=== PATIENT | female | born 1950 | race Caucasian/White ===

== ENCOUNTER 2019-12-10 09:18 | Emergency (ER) | payer MEDICARE, OTHER, SELFPAY ==
[2019-12-10 09:19] VITALS: PULSE 75
--- NOTE | 2019-12-10 09:22 | W.ED.UPPEXIN ---
HPI - Extremity Injury (Upper) General: Chief Complaint: Extremity Injury, Upper Stated Complaint: LEFT WRIST INJURY Time Seen by Provider: 12/10/19 09:22 Source: patient Mode of arrival: ambulatory Limitations: no limitations Review of Systems General: Reports: 10 or more systems reviewed and unremarkable except in HPI and below Musc: Reports: joint pain (left wrist) [facility] ED PFSH: Social History Smoking and tobacco status: never smoked Physical Exam Const: COMMON NORMALS: no acute distress and patient oriented x3 GENERAL APPEARANCE: cooperative HENMT: COMMON NORMALS: normocephalic and Normal external nose present HEAD & SCALP: normal to inspection and normocephalic NOSE: Normal external nose present Eye: GENERAL EYE: appearance normal, both eyes and all related structures Neck/C-Spine: COMMON NORMALS: full ROM Chest: COMMONS NORMALS: normal inspection of the chest Resp: COMMON NORMALS: normal respiratory effort EFFORT & INSPECTION: Yes able to speak in complete sentences Cardio: COMMON NORMALS: regular rate and regular rhythm RATE: regular rate RHYTHM: regular rhythm GI: COMMON NORMALS: non-tender : COMMON NORMALS: Yes no CVA tenderness BLADDER/KIDNEY EXAM: Yes no CVA tenderness Back/Pelvis: COMMON NORMALS: no CVA tenderness and thoracic and lumbar spine normal to inspection Extremity: NARRATIVE EXTREMITY EXAM: left wrist swelling dorsal radial side. tolerable movement, normal cap refill and tendon function. Neuro: COMMON NORMALS: patient oriented x3 and moves all extremities Psych: COMMON NORMALS: mental status grossly normal and cooperative Skin: COMMON NORMALS: no rashes or lesions noted GENERAL SKIN EXAM: no rashes or lesions noted Course Vital Signs: Vital signs: Vital Signs Temperature 98.1 F 12/10/19 09:24 Pulse Rate 83 12/10/19 09:24 Respiratory Rate 18 12/10/19 09:24 Blood Pressure 192/103 12/10/19 09:24 Pulse Oximetry 97 12/10/19 09:24 MDM - Extremity Injury (Upper) [facility] Narrative: Medical decision making narrative: Patient comes in today for injury to the left wrist. Patient has minimal pain. Patient appears well. Patient has dinner fork type deformity to the left wrist. Patient has good tendon function and no sensation loss in the distal fingers. Pulses intact. Vital signs are normal except for elevated blood pressure. Differential diagnosis includes fracture, dislocation, sprain, contusion. X-ray noted a Colles' type fracture to the distal radius of the left wrist. Reviewed exam with patient with recommendations for treatment and follow-up. Patient was placed in a sugar tong splint and sling. Patient will have contact by case management to assist with orthopedic follow-up. Patient reported understanding of care plan. Discharge Plan Discharge Patient Disposition: Home, Self-Care Clinical Impression: Distal radial fracture Qualifiers: Encounter type: initial encounter Fracture type: closed Fracture morphology: Colles' Laterality: left Qualified Code(s): S52.532A - Colles' fracture of left radius, initial encounter for closed fracture Condition: Stable Prescriptions: New hydrocodone-acetaminophen 5-325 mg tablet 1 tab PO Q6H PRN (Reason: pain (scale score 7-10)) Qty: 10 RF: 0 No Action Celexa 10 mg Tablet 10 mg PO DAILY PRN (Reason: ANXIETY) RF: 0 Aspir-81 81 mg Tablet,Delayed Release (Dr/Ec) 81 mg PO DAILY RF: 0 tramadol 50 mg tablet 50 mg PO BID PRN (Reason: Pain) RF: 0 bisoprolol fumarate 10 mg tablet 10 mg PO DAILY RF: 0 hydrochlorothiazide 12.5 mg tablet 12.5 mg PO DAILY RF: 0 Vitamin D3 1 tab PO DAILY RF: 0 Discharge Orders: Discharge Order (Routine); Ordered 12/10/19 Ordered By: Migel Buckley Referrals: Moustapha Willis MD [Primary Care Provider] - Discharge Diet: Usual diet Discharge Activity: Increase activity as tolerated Patient Instructions: Wrist Fracture in Adults (ED) Activity Restrictions/Additional Instructions: Keep splint clean and dry. Activity as tolerated. Use sling for comfort. May remove sling at night when laying down. Follow-up with orthopedic surgeon for further treatment and evaluation. Return to the ER for uncontrolled pain or new concerns. Case management will contact you with assistance for orthopedic follow-up. Coding Level of Care Code ED Steward/Stewardess Bath for Martin Ferrera Exam Comprehensive
[2019-12-10 09:24] VITALS: BP 192/103; PULSE 83; RESP 18; TEMP 36.7; O2SAT 97; BMI 25.0
--- NOTE | 2019-12-10 09:26 | XRR_ITS ---
PROCEDURE INFORMATION: Exam: XR Left Wrist Exam date and time: 12/10/2019 9:27 AM Age: 68 years old Clinical indication: Injury or trauma; Fall; Initial encounter; Blunt trauma (contusions or hematomas; Wrist; Left TECHNIQUE: Imaging protocol: XR Left wrist. Views: 3 or more views. COMPARISON: No relevant prior studies available. FINDINGS: Bones/joints: Acute impacted intra-articular fracture of the distal radius, with dorsal angulation of the major distal fracture fragment. Secondary positive ulnar variance. Degenerative change. Soft tissues: Soft tissue swelling. XR/XR wrist LT min 3V* 60370 IMPRESSION: Acute impacted intra-articular fracture of the distal radius, with dorsal angulation of the major distal fracture fragment.
[2019-12-10 10:45] VITALS: BP 123/75; PULSE 65; RESP 16; O2SAT 98
--- NOTE | 2019-12-11 11:47 | DCPLANNER ---
production control manager had message to schedule a follow up appointment for patient with ortho. production control manager called the ortho clinic, spoke with Linnette, gave clinic patients information. production control manager was told that patients information would be printed and reviewed. Clinic will call adult protective caseworker and patient with appointment information.
--- NOTE | 2019-12-15 15:29 | DCPLANNER ---
Patient had a follow up appointment scheduled for 12.11.19 at ortho. Patient did attend the appointment.
== END 2019-12-10 10:47 | disposition home or self-care (01) ==
PROVIDERS: Emergency Provider Nurse Practitioner Family; PCP Family Medicine
DX: S52.532A Colles' fracture of left radius, initial encounter for closed fracture (principal); X58.XXXA Exposure to other specified factors, initial encounter; Z79.82 Long term (current) use of aspirin
CPT/HCPCS: 12345; 29125; 73110; 99281; 99283; A4590

== ENCOUNTER 2019-12-13 10:35 | Day surgery (SDC) | payer MEDICARE, OTHER, SELFPAY ==
[2019-12-12 10:56] VITALS: BMI 25.0
--- NOTE | 2019-12-13 | SCC_ITS ---
Procedure Done: Toes reduction and pinning left distal radius 23.4 seconds of fluoroscopic guidance, for a cumulative dose of 0.37 mGy, was provided to Dr. Glez by the radiology department. C-arm images of the LEFT wrist were saved for the patient's permanent record. ALEXIS
--- NOTE | 2019-12-13 | XR_ITS ---
WS: [id number] Left wrist, 2 views C-arm fluoroscopy, 12/13/2019 Clinical Data: CAROLIN IMAGES Comparison: Left wrist, 12/10/2019 Findings: 3 orthopedic pins have been inserted to reduce the comminuted displaced fracture of the distal radius . XR/XR wrist LT 2V [id number] Impression: Internal fixation of distal left radial fracture.
[2019-12-13 11:15] VITALS: BP 142/89; PULSE 82; RESP 18; TEMP 36.7; O2SAT 99
[2019-12-13] MEDS: sodium chloride 0.9% 1,000 ML 30 ML IV (11:52)
--- NOTE | 2019-12-13 12:56 | ANES.PREANE2 ---
Pre-Anesthetic Assessment Pre-Anesthetic Assessment: Height/Weight: Height 1.65 m Weight 68.039 kg Temp Pulse Resp BP Pulse Ox 98.0 F 82 18 142/89 99 12/13/19 11:15 12/13/19 11:15 12/13/19 11:15 12/13/19 11:15 12/13/19 11:15 Preop Diagnosis: Left distal radius fracture Proposed Procedure: Operation Date: 12/13/19 14:40 Proposed Procedures p open reduction internal fixation left distal radius 51203 S52.572(Left) - Gautam Glez MD Familial anesthetic complications: None Was Beta Corinna taken within 24 hours: Yes Last intake: Intake Last Liquid Date 12/13/19 Last Liquid Time 07:00 Last Solid Date 12/12/19 Last Solid Time 18:00 Social: Social History: No alcohol and No tobacco Exam: Pre-Anes Outpt Exam: alert, oriented x 3, clear to auscultation bilaterally and regular rate & rhythm Airway: Cervical ROM: WNL MP: 3 Dentition: Full Pulmonary: Pulmonary: None reported CV/HEM: CV/HEM: HTN and None reported : : None reported Hepatic: Hepatic: None reported GI: GI: None reported Metabolic: Metabolic: None reported Musc/skel: Musc/skel: None reported Neuropsych: Neuropsych: None reported Anesthetic Plan: ASA status: 2 Anesthesia: General and Regional (specify below) Risk of > 500 ml blood loss (7ml/kg in children): No Meds/Allergies Current Medications: Current Medications Generic Name Dose Route Start Last Admin Trade Name Freq PRN Reason Stop Dose Admin Sodium Chloride 1,000 mls @ 30 ml s/hr 12/13/19 07:30 12/13/19 11:52 Sodium Chloride 0.9% IV 12/14/19 07:29 30 mls/hr .Q24H LAQUITA Administration PFSH Anesthesia PFSH: Social History Smoking and tobacco status: never smoked Data Anesthesia Cardiac Studies: No Data to Display
--- NOTE | 2019-12-13 13:01 | ANES.PROC ---
Anesthesia Procedures Procedure/Date: 12/13/19 Nerve Block ^: Nerve Block 1: Main Anesthesia: general anesthesia Time Out Performed: Yes Consent: requested by attending/covering physician, from patient, from other, risks and benefits reviewed and patient agrees to proceed Nerve block location: axillary (L (with musculocutenaous)) Anesthesia monitors applied: pulse oximetry, EKG, BP cuff and oxygen Nerve block position: semi sitting Anesthetic Used: ropivicaine 0.5% and with decadron (4 mg) Amount of anesthesia used (mL): 30 Ultrasound used to: recognize landmarks and visualize and ID brachial plexus Nerve Stimulator Used?: No Interscalene/Femoral BLK: 2 stimuplex 22 g needle used for position and inplane approach, visualize local anesthetic spread and no vascular puncture identified Patient Tolerated Procedure: well Complications: none
--- NOTE | 2019-12-13 14:34 | PM.OP ---
Operative Report Date of procedure: December 13, 2019 Pre-op Diagnosis: Left distal radius fracture, displaced Post-op diagnosis: same Post-op Findings: Same Procedure Done: Toes reduction and pinning left distal radius Implants: 0.062 K wires x3 Pathology: none sent Surgeon: Gautam Glez Anesthesia: General Estimated blood loss (mL): 0 Complications: None Findings: Patient with a extra-articular fracture of the left distal radius with approximately 40 degrees dorsal angulation of the articular surface and dorsal comminution. Condition: stable Disposition: PACU Procedure: Patient was taken to the operating room given a general anesthesia. She was given 2 g of Ancef. The arm was prepped and draped over the arm board. A timeout was performed. Initial closed reduction provided a satisfactory reduction. With loss of a dorsal force on the distal fragment articular surface lost approximately 20 degrees of volar angulation and decision was made to proceed with pinning. 3 K wires were driven from the distal fragment proximally 1 beginning the tip of the radial styloid into dorsally over the distal radius exiting the contralateral cortex. Intraoperative images showed a stable and satisfactory alignment of the distal radius. Pins were covered with Jurgan's balls in the pin sites with Xeroflo gauze, 4 x 4's. A short arm cast was applied which was bivalved and stabilized with an Paul. The patient was extubated and taken recovery in stable condition.
[2019-12-13 14:35] VITALS: BP 146/79; PULSE 84; RESP 16; TEMP 36.3; O2SAT 100
[2019-12-13 14:40] VITALS: BP 147/79; PULSE 87; RESP 14; O2SAT 100
[2019-12-13 14:44] VITALS: BP 140/81; PULSE 87; RESP 17; TEMP 36.8; O2SAT 100
--- NOTE | 2019-12-13 14:45 | SUR.PHASEI ---
1445 PT L. FINGERS STILL NO SENSATION/MOVEMENT TO L. FINGERS DUE TO BLOCK, CAP REFILL <3 SEC
[2019-12-13 14:48] VITALS: BP 147/87; PULSE 75; RESP 18; TEMP 36.2; O2SAT 100
[2019-12-13 15:09] VITALS: BP 138/95; PULSE 72; RESP 18; TEMP 36.3; O2SAT 94
--- NOTE | 2019-12-14 15:25 | W.PM.OPSUD ---
Surgery/Procedure H&P Update DATE OF PROCEDURE: December 14, 2019 DATE H&P PERFORMED: 12/11/19 H&P UPDATE INFORMATION: I have reviewed H&P completed within last 30 days PREOP DIAGNOSIS: Left distal radius fracture, displaced PLANNED PROCEDURE: Operation Date: 12/13/19 14:40 Proposed Procedures p open reduction internal fixation left distal radius 31503 S52.572(Left) - Gautam Glez MD
== END 2019-12-13 16:36 | disposition home or self-care (01) ==
PROVIDERS: PCP Family Medicine; Visit Provider Orthopaedic Surgery
PROC: (CPT 25606; principal; 2019-12-13 14:35)
DX: S52.532A Colles' fracture of left radius, initial encounter for closed fracture (principal); X58.XXXA Exposure to other specified factors, initial encounter; I10 Essential (primary) hypertension; Z79.82 Long term (current) use of aspirin
CPT/HCPCS: 25606; 12345; 73100; 76000; C1713; J0690; J1100; J1580; J2405; J2704; J2710; J2795; J3010; J3490; J7030

== ENCOUNTER → 2020-01-11 09:32 | Outpatient (BNVA) | payer MEDICARE, OTHER, SELFPAY | PROVIDERS: PCP Family Medicine; Visit Provider Orthopaedic Surgery | DX: Z48.89 Encounter for other specified surgical aftercare (principal); S52.592A Other fractures of lower end of left radius, initial encounter for closed fracture; S52.612A Displaced fracture of left ulna styloid process, initial encounter for closed fracture; X58.XXXA Exposure to other specified factors, initial encounter | CPT/HCPCS: 73110 ==

== ENCOUNTER 2020-01-11 10:34 | Outpatient (CLI) | payer MEDICARE, OTHER, SELFPAY | END 2020-01-11 10:35 | disposition home or self-care (01) | LOC: SPT 10:35 | PROVIDERS: PCP Family Medicine; Visit Provider Orthopaedic Surgery | DX: Z47.89 Encounter for other orthopedic aftercare (principal); S52.592D Other fractures of lower end of left radius, subsequent encounter for closed fracture with routine healing; X58.XXXD Exposure to other specified factors, subsequent encounter; Z48.89 Encounter for other specified surgical aftercare; S52.592A Other fractures of lower end of left radius, initial encounter for closed fracture; S52.612A Displaced fracture of left ulna styloid process, initial encounter for closed fracture; X58.XXXA Exposure to other specified factors, initial encounter | CPT/HCPCS: 73110; 97760; L3908 ==

== ENCOUNTER 2020-01-15 09:00 | Outpatient (RCR) | payer MEDICARE, OTHER, SELFPAY | END 2020-02-02 23:59 | disposition home or self-care (01) | LOC: SOT 09:00 | PROVIDERS: PCP Family Medicine; Referring Provider Orthopaedic Surgery; Visit Provider Orthopaedic Surgery | DX: S52.502D Unspecified fracture of the lower end of left radius, subsequent encounter for closed fracture with routine healing (principal) | CPT/HCPCS: 97035; 97110; 97166 ==

== ENCOUNTER → 2020-02-08 08:37 | Outpatient (BNVA) | payer MEDICARE, OTHER, SELFPAY | PROVIDERS: PCP Family Medicine; Visit Provider Orthopaedic Surgery | DX: Z48.89 Encounter for other specified surgical aftercare (principal) | CPT/HCPCS: 73110 ==

== ENCOUNTER 2022-12-13 07:09 | Emergency (ER) | payer MEDICARE, OTHER, SELFPAY ==
[2022-12-13 07:13] VITALS: BP 160/88; PULSE 93; RESP 18; TEMP 36.7; O2SAT 97
--- NOTE | 2022-12-13 07:24 | CTR_ITS ---
PROCEDURE INFORMATION: Exam: CT Abdomen And Pelvis With Contrast Exam date and time: 12/13/2022 8:13 AM Age: 71 years old Clinical indication: Other: Hematochezia; Prior surgery; Surgery date: 6+ months; Surgery type: Hyster TECHNIQUE: Imaging protocol: Computed tomography of the abdomen and pelvis with contrast. Radiation optimization: All CT scans at this facility use at least one of these dose optimization techniques: automated exposure control; mA and/or kV adjustment per patient size (includes targeted exams where dose is matched to clinical indication); or iterative reconstruction. Contrast material: OMNI 350; Contrast volume: 100 ml; Contrast route: INTRAVENOUS (IV); REPORTING DATA: Count of CT and Cardiac NM exams in prior 12 months: This patient has received 0 known CTs and 0 known cardiac nuclear medicine studies in the 12 months prior to the current study. COMPARISON: CR XR chest 2V* [id number] 03/02/2017 4:30 PM RADIATION DOSE METRICS: Total DLP (mGy-cm): 533.33 FINDINGS: Liver: Normal. No mass. Gallbladder and bile ducts: Normal. No calcified stones. No ductal dilation. Pancreas: Normal. No ductal dilation. Spleen: Normal. No splenomegaly. Adrenal glands: There is a left adrenal nodularity present measuring 15 x 14 x 23 mm. Right adrenal nodularity seen measuring 15 x 13 x 20 mm. Kidneys and ureters: Normal. No hydronephrosis. Stomach and bowel: There is bowel wall thickening seen within the distal descending colon, findings that could represent inflammatory changes and colitis. Appendix: The appendix is visualized and is normal in configuration. Intraperitoneal space: There is a small volume of free fluid seen in the cul-de-sac. Vasculature: Unremarkable. No abdominal aortic aneurysm. Lymph nodes: Unremarkable. No enlarged lymph nodes. Urinary bladder: Unremarkable as visualized. Reproductive: Status post hysterectomy. Bones/joints: There is a diffuse loss of disc height seen within the lumbar spine L2-S1 compatible with degenerative disc disease. Soft tissues: There is mild thickening of the lateral conal fascia on the left. CT/CT abdomen pelvis w con* 71000 IMPRESSION: 1. Bowel wall thickening seen within the distal descending colon with adjacent thickening of the lateral conal fascia, findings compatible with inflammatory changes and colitis. 2. There are bilateral adrenal nodularities present, the largest seen on the left measuring 15 x 14 x 23 mm. Non-emergent adrenal CT is recommended. (Reference: Zack) 3. Small volume of free fluid seen in the cul-de-sac. REFERENCES: Zack ARCEO, et al. Management of Incidental Adrenal Masses: A White Paper of the ACR Incidental Findings Committee. J Am Mat Radiol. 2017;14(8):7888-4792.
--- NOTE | 2022-12-13 07:26 | ED_ITS ---
HPI - Abdominal Pain General: Chief Complaint: Abdominal Pain Stated Complaint: Bleeding from colon Time Seen by Provider: 12/13/22 07:11 Source: patient Mode of arrival: ambulatory Limitations: no limitations History of Present Illness: This patient presents to the emergency department via private vehicle. She is here because of bright red blood per rectum. She states that yesterday she ate a meal of tuna and strawberries and then a short time later developed some abdominal cramping followed by defecation which was repetitive in nature. She states that it eventually turned into loose stool and eventually became blood mixed with stool and blood in the water. She is also had some left-sided abdominal pain subsequently. She denies any fevers or chills lightheadedness chest pain shortness of breath etc. She takes meloxicam for arthritis. She does not take any other blood thinning medications. She states that she was taking another arthritis medicine a couple of months ago and then had an episode of rectal bleeding about a month ago after repetitive stools and was switched to meloxicam. She does not have any history of bleeding dyscrasias. She has no history of peptic ulcer disease, black tarry stools preceding the current episode. She does not have any easy bruising, bleeding gums with teeth brushing etc. she had a prior vaginal hysterectomy no other abdominal surgeries. Quality: cramping Radiation: LUQ and LLQ Migration to: no migration Associated Symptoms: Reports hematochezia; Denies chills, dysuria, fever(s), hematuria, hematemesis, melena, nausea, syncope and vomiting Review of Systems Const: Denies: fever(s) or chills ENMT: Denies: odynophagia, nasal discharge or nasal congestion Card: Denies: chest pain, palpitations, syncope or pre-syncope Resp: Denies: dyspnea GI: Reports: hematochezia; Denies: nausea, vomiting, hematemesis or melena : Denies: difficulty voiding, dysuria or hematuria Musc: Reports: joint pain; Denies: neck pain, back pain, extremity pain or extremity swelling Skin/Breast: Denies: rash Neuro: Denies: headache(s), numbness in extremities or weakness in extremities Jann/Lymph: Denies: easy bruising or easy bleeding PFSH ED 2 PFSH: Social History Smoking and tobacco status: never smoked Physical Exam Narrative: EXAM NARRATIVE: She is pleasant makes good eye contact appears to be comfortable. She interacts in a normal fashion with a goal-directed fluent voice Const: COMMON NORMALS: no acute distress, average body habitus and patient oriented x3 GENERAL APPEARANCE: cooperative, comfortable and well kempt ORIENTATION/CONSCIOUSNESS: Yes awake HENMT: COMMON NORMALS: normocephalic, Normal nasal mucous membranes and turbinates present, moist oral mucous membranes and oropharynx normal HEAD & SCALP: normocephalic NOSE: Normal nasal mucous membranes and turbinates present Eye: COMMON NORMALS: Equal, round and reactive pupils present, EOMs intact bilaterally, conjunctivae normal and no scleral icterus CONJUNCTIVA: Yes conjunctivae normal PUPIL: Yes Equal, round and reactive pupils present Neck/C-Spine: COMMON NORMALS: full ROM, no lymphadenopathy and supple Chest: COMMONS NORMALS: normal inspection of the chest Resp: COMMON NORMALS: normal respiratory effort, No retractions, No use of accessory muscles and clear to auscultation bilaterally EFFORT & INSPECTION: Yes able to speak in complete sentences AUSCULTATION: clear to auscultation bilaterally Cardio: COMMON NORMALS: regular rate, regular rhythm, No murmurs present (Cardio) and Peripheral pulses 2+ throughout RATE: regular rate RHYTHM: regular rhythm PERIPHERAL PULSES: Peripheral pulses 2+ throughout GI: COMMON NORMALS: Normal to inspection, nondistended, normoactive bowel sounds present, Soft to palpation, No hepatosplenomegaly present and no masses PALPATION: Yes Soft to palpation, Yes Tenderness to palpation present (GI) (Mild left upper and left lower quadrant tenderness no peritoneal signs) and Yes No hepatosplenomegaly present RECTAL EXAM: visual inspection normal, normal sphincter tone, No External hemorrhoid(s) present, No Internal hemorrhoid(s) present and no fissure noted OTHER: Small amount of bloody mucus on examining finger : COMMON NORMALS: Yes no CVA tenderness BLADDER/KIDNEY EXAM: Yes no CVA tenderness Back/Pelvis: COMMON NORMALS: no CVA tenderness, thoracic and lumbar spine nor mal to inspection, no thoracic nor lumbar tenderness and thoraco-lumbar ROM normal Extremity: COMMON NORMALS: normal to inspection, full ROM, capillary refill normal, no calf tenderness and no pedal edema Neuro: COMMON NORMALS: patient oriented x3, moves all extremities, no focal motor deficits and no sensory deficits noted CRANIAL NERVES: Yes CN normal except as noted Psych: COMMON NORMALS: mental status grossly normal APPEARANCE: Yes well kempt Skin: COMMON NORMALS: no rashes or lesions noted, no wounds and turgor normal GENERAL SKIN EXAM: no rashes or lesions noted and turgor normal Course Reevaluation(s): Reevaluation #1: Vital signs remained stable. She had an additional bowel movement while in the emergency department no blood at that time. Discussed current findings their implications and limitations with her. Globin is reassuring. CAT scan does show some colonic thickening suggestive of colitis but no other concerning acute findings. Does have some adrenal changes and when I mentioned this to her she states that she was told by spiral binder years ago that she had some adrenal changes. This information will be passed on to her primary care doctor for filing and subsequent evaluation as necessary. Also recommend to her that she talk to her doctor again about getting a colonoscopy as its been approximately 10 years since her last screening colonoscopy. Time: 09:03 Vital Signs: Vital signs: Vital Signs Temperature 98.1 F 12/13/22 07:13 Pulse Rate 76 12/13/22 08:48 Respiratory Rate 18 12/13/22 07:13 Blood Pressure 160/88 12/13/22 08:48 Pulse Oximetry 97 12/13/22 08:48 Oxygen Delivery Me thod Room Air 12/13/22 08:48 MDM - Abdominal Pain Medical Decision Making This normally healthy 71-year-old lady presented to the emergency department with bright red blood per rectum after multiple loose stools with associated left sided abdominal cramping and discomfort. Second episode in the last approximately 4 to 6 weeks of similar occurrence. Her initial clinical examination did not reveal any obvious etiology such as rectal fissuring inflamed external hemorrhoid etc. Hemodynamically stable but because this is a second episode I think it is reasonable for us to image her to ensure that there is no occult mass etc. or other ongoing pathology such as acute diverticulitis etc. Ultimately if her imaging and other studies are reassuring here a colonoscopy would be likely in her future as an outpatient procedure. She remained clinically stable on the emergency department. Hemoglobin was reassuring platelet count was normal. Making blood dyscrasia etc. unlikely. Her CAT scan did not show any obvious free air perforation, diverticulitis etc. Did have some black bowel wall thickening suggesting of colitis. This does not usually require antibiotics in this clinic clinical picture. There is perhaps a common thread between her episode of several weeks ago and this current episode in that she was taking a nonsteroidal at that time and a nonsteroidal currently. I recommended she stop nonsteroidals and revisit her arthritis pain control with her physician. I did recommend acetaminophen 650 mg up to 3 times daily in the interim. We discussed return precautions as well as CT scan report incidental findings etc. Lab Data I reviewed the patient's lab results. 12/13/22 07:30 12/13/22 07:30 Labs/Radiology: Radiology Impressions Abdomen/Pelvis CT 12/13/22 07:24 IMPRESSION: 1. Bowel wall thickening seen within the distal descending colon with adjacent thickening of the lateral conal fascia, findings compatible with inflammatory changes and colitis. 2. There are bilateral adrenal nodularities present, the largest seen on the left measuring 15 x 14 x 23 mm. Non-emergent adrenal CT is recommended. (Reference: Zack) 3. Small volume of free fluid seen in the cul-de-sac. REFERENCES: Zack ARCEO, et al. Management of Incidental Adrenal Masses: A White Paper of the ACR Incidental Findings Committee. J Am Mat Radiol. 2017;14(8):2299-9554. Laboratory Results WBC 10.8 10^3/uL (4.0-10.0) H 12/13/22 07:30 RBC 4.25 10^6/uL (4.1-5.3) 12/13/22 07:30 Hgb 12.6 g/dL (11.5-15.3) 12/13/22 07:30 Hct 37.4 % (37.0-47.0) 12/13/22 07:30 MCV 88.0 fl (81-99) 12/13/22 07:30 MCH 29.6 pg (28.0-34.0) 12/13/22 07:30 MCHC 33.7 g/dL (30.0-36.0) 12/13/22 07:30 RDW 12.9 % (12.1-15.1) 12/13/22 07:30 Plt Count 269 10^3/cmm (130-400) 12/13/22 07:30 MPV 11.6 fL (7.4-10.4) H 12/13/22 07:30 Neut % (Auto) 80.3 % 12/13/22 07:30 Lymph % (Auto) 10.9 % 12/13/22 07:30 [place] % (Auto) 7.9 % 12/13/22 07:30 Eos % (Auto) 0.2 % 12/13/22 07:30 Baso % (Auto) 0.4 % 12/13/22 07:30 Neut # (Auto) 8.68 10^3/uL (1.8-7.7) H 12/13/22 07:30 Lymph # (Auto) 1.2 10^3/uL (0.8-4.8) 12/13/22 07:30 [place] # (Auto) 0.9 10^3/uL (0.2-0.9) 12/13/22 07:30 Eos # (Auto) 0.0 10^3/uL (0.0-0.8) 12/13/22 07:30 Baso # (Auto) 0.0 10^3/uL (0.0-0.1) 12/13/22 07:30 Nucleated RBC % (auto) 0 % 12/13/22 07:30 Nucleated RBCs # 0.0 /100WBC 12/13/22 07:30 Sodium 135 mmol/L (136-145) L 12/13/22 07:30 Potassium 3.2 mmol/L (3.5-5.1) L 12/13/22 07:30 Chloride 99 mmol/L (98-107) 12/13/22 07:30 Carbon Dioxide 23 mmol/L (22-29) 12/13/22 07:30 Anion Gap 16.2 (5-19) 12/13/22 07:30 BUN 9 mg/dL (8-23) 12/13/22 07:30 Creatinine 0.7 mg/dL (0.5-0.9) 12/13/22 07:30 GFR Calculation Not Reportable 12/13/22 07:30 Glucose 115 mg/dL (65-115) 12/13/22 07:30 Calculated Osmolality 280 mOsm/kg (285-295) L 12/13/22 07:30 Calcium 9.3 mg/dL (8.5-10.5) 06/11/23 07:30 Total Bilirubin 0.7 mg/dL (0.15-1.2) 12/13/22 07:30 AST 19 U/L (0-32) 12/13/22 07:30 ALT 15 U/L (0-33) 12/13/22 07:30 Alkaline Phosphatase 120 U/L (35-105) H 12/13/22 07:30 Total Protein 6.5 g/dL (6.6-8.7) L 12/13/22 07:30 Albumin 4.0 g/dL (3.5-5.2) 12/13/22 07:30 Globulin 2.5 g/dL (1.3-4.6) 12/13/22 07:30 Discharge Plan Discharge Patient Disposition: Home Clinical Impression: Hematochezia Condition: Stable Prescriptions: No Action magnesium 250 mg tablet 250 mg PO DAILY hydrocodone-acetaminophen [[place]] 7.5-325 mg tablet 1 tab PO Q4H PRN (Reason: pain) 7 Days Qty: 30 0RF (DME) COCK UP SPLINT See Rx Instructions .Route .MEDSUPPLY Qty: 1 0RF Rx Instructions: As directed hydrocodone-acetaminophen [[place]] 5-325 mg tablet 1 tab PO Q4H PRN (Reason: pain) 7 Days Qty: 30 0RF aspirin [Aspir-81] 81 mg Tablet,Delayed Release (Dr/Ec) 81 mg PO DAILY tramadol 50 mg tablet 50 mg PO BID PRN (Reason: Pain) bisoprolol fumarate 10 mg tablet 10 mg PO DAILY hydrochlorothiazide 12.5 mg tablet 12.5 mg PO DAILY Vitamin D3 1 tab PO DAILY hydrocodone-acetaminophen 5-325 mg tablet 1 tab PO Q6H PRN (Reason: pain (scale score 7-10)) Qty: 10 0RF citalopram 10 mg Tablet 10 mg PO DAILY hydroxyzine HCl 25 mg Tablet 25 mg PO BID PRN (Reason: Anxiety) Discharge Orders: Discharge ED (Routine); Ordered 12/13/22 Ordered By: Danish Del Real Referrals: Moustapha Willis MD [Primary Care Provider] - Discharge Diet: Advance as tolerated and Usual diet Discharge Activity: Resume usual activity Patient Instructions: Opioid Safety, Pain Management Activity Restrictions/Additional Instructions: Stop taking your Mobic. Use Tylenol or acetaminophen 650 mg up to 3 times daily as needed for any arthritis pain. Contact your primary care doctor for follow- up reevaluation in approximately 7 to 10 days for discussion of a screening colonoscopy. Also ensure that he is aware of your CAT scan and its results. If you have worsening symptoms at any time, fevers, increasing abdominal pain, increasing bleeding or nonresolution your bleeding in the next 2 days return to this or the nearest emergency department for reevaluation. Coding Level of Care Code ED Greenhouse Worker for Martin Ferrera
[2022-12-13 07:49] LABS: Basophils % 0.4 %; Eosinophils % 0.2 %; Hematocrit 37.4 % (37.0-47.0); Hemoglobin 12.6 g/dL (11.5-15.3); Lymphocytes # 1.2 10^3/uL (0.8-4.8); Lymphocytes % 10.9 %; Mean Corpuscular HGB Conc 33.7 g/dL (30.0-36.0); Mean Corpuscular Hemoglobin 29.6 pg (28.0-34.0); Mean Platelet Volume 11.6 fL (7.4-10.4); Monocytes # 0.9 10^3/uL (0.2-0.9); Monocytes % 7.9 %; Neutrophils # 8.68 10^3/uL (1.8-7.7); Neutrophils % 80.3 %; Nucleated Red Blood Cells % 0 %; Platelet Count 269 10^3/cmm (130-400); Red Blood Count 4.25 10^6/uL (4.1-5.3); Red Cell Distribution Width 12.9 % (12.1-15.1); White Blood Count 10.8 10^3/uL (4.0-10.0)
[2022-12-13 08:03] LABS: Alanine Aminotransferase 15 U/L (0-33); Alkaline Phosphatase 120 U/L (35-105); Anion Gap 16.2 (5-19); Aspartate Amino Transferase 19 U/L (0-32); Blood Urea Nitrogen 9 mg/dL (8-23); Calcium 9.3 mg/dL (8.5-10.5); Carbon Dioxide 23 mmol/L (22-29); Chloride 99 mmol/L (98-107); Creatinine Clr Calc Pharmacy 0.1503; Globulin 2.5 g/dL (1.3-4.6); Glucose 115 mg/dL (65-115); Osmolality Calculated 280 mOsm/kg (285-295); Potassium 3.2 mmol/L (3.5-5.1); Sodium 135 mmol/L (136-145); Total Bilirubin 0.7 mg/dL (0.15-1.2); Total Protein 6.5 g/dL (6.6-8.7)
[2022-12-13 08:48] VITALS: BP 160/88; PULSE 76; O2SAT 97
[2022-12-13 09:18] VITALS: BP 164/93; PULSE 80; RESP 16; O2SAT 100
== END 2022-12-13 09:20 | disposition home or self-care (01) ==
PROVIDERS: Emergency Provider Emergency Medicine; PCP Family Medicine
DX: K92.1 Melena (principal); R93.89 Abnormal findings on diagnostic imaging of other specified body structures
CPT/HCPCS: 74177; 80053; 85025; 99284; Q9967

== ENCOUNTER 2023-05-20 08:45 | Outpatient (CLI) | payer MEDICARE, OTHER, SELFPAY ==
--- NOTE | 2023-05-20 08:49 | CT_ITS ---
WS: [id number] CT adrenals with and without contrast. HISTORY: ADRENAL MASS Noncontrast 2 mm imaging is performed through the abdomen with attention to the adrenal glands. Addit ional 1 minute and 15 minute delayed images are then performed through the adrenal glands. CONTRAST: Omnipaque 350; 95 mL IV. DLP: 897.[address] scans at [facility] use at least one of these dose optimization techniques: automated e xposure control; mA and/or kV adjustment per patient size (includes targeted exams where dose is matc hed to clinical indication); or iterative reconstruction. COMPARISON: 12/01/2012 and 12/13/2022 Lower thorax: Lung bases are clear. Mild cardiomegaly and small hiatal hernia. Liver: Normal. No intrahepatic dilatation. Gallbladder: Normal. Pancreas: Normal. Spleen: Normal. ADRENAL GLANDS. RIGHT: Well-circumscribed mass of low-attenuation measures 1.6 x 1.3 cm. Absolute and relative washou t values are consistent with an adenoma. This adrenal nodule has been present since 2012 without sign ificant increase in size. LEFT: There are 2 lobulated masses associated with the LEFT adrenal gland. Both of these masses are s table since 12/01/2012 with only minimal change in size. The largest in the main body of the adrenal g land measures 1.1 x 1.7 cm. Both of the LEFT adrenal nodules are benign adenoma. Absolute washout and relative washout values suggest adenomas. Right kidney: Normal. Left kidney: Normal. Aorta: Mild atherosclerosis aorta. Mild narrowing of the proximal celiac axis. GI tract: As visualized through the abdomen normal. No adenopathy or free fluid. Abdominal wall: Ventral abdominal wall hernia contains fat only. Visualized osseous structures: Unremarkable. IMPRESSION: 1. Bilateral adrenal masses demonstrate absolute and relative washout values consistent with benign a denomas. Stable since 2012. 2. 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
[2023-05-20] MEDS: iohexol 350 mg/mL 500 mL Btl (per mL) IV (09:34)
== END 2023-05-20 08:46 | disposition home or self-care (01) ==
LOC: RAD 08:45
PROVIDERS: PCP Family Medicine; Visit Provider Family Medicine
DX: E27.9 Disorder of adrenal gland, unspecified (principal); I70.0 Atherosclerosis of aorta
CPT/HCPCS: 74170; Q9967

== ENCOUNTER 2024-09-29 07:27 | Outpatient (CLI) | payer MEDICARE, OTHER, SELFPAY ==
--- NOTE | 2024-09-29 07:33 | USCV_ITS ---
Jose Meade Age: 73 Gender: F : 1950 Exam Date: 09/29/2024 07:55 Ordering Phys: Roberto Trejo DO Technologist: Damian Chavez Exam Location: [facility] [place] Indication: heart murmur BP: 160 / 88 HR: 85 Rhythm: Sinus Technical Quality: Adequate MEASUREMENTS (Male / Female) Normal Values 2D ECHO LV Diastolic Diameter PLAX 4.1 cm 4.2 - 5.9 / 3.9 - 5.3 cm IVS Diastolic Thickness 1.4 cm 0.6 - 1.0 / 0.6 - 0.9 cm IVS Systolic Thickness 1.6 cm LVPW Diastolic Thickness 1.8 cm 0.6 - 1.0 / 0.6 - 0.9 cm LVPW Systolic Thickness 2.0 cm LVOT Diameter 2.0 cm LV Ejection Fraction 2D Teich 74.7 % LV Ejection Fraction MOD 4C 68.2 % LV Ejection Fraction MOD 2C 62.6 % LV Ejection Fraction 2C AL 62.8 % LA Diameter 3.2 cm RA Systolic Volume 4C AL 18.4 ml RA Systolic Volume 4C MOD 18.5 ml LA Sys Volume AL 31.1 cm cubed LA Sys Volume Index AL 17.0 cm cubed/m squared Aorta at Sinotubular Diameter 2.1 cm IVC Diameter 1.4 cm M-MODE LA Ao Ratio MM 1.7 AV Cusp Separation MM 0.9 cm DOPPLER AV Peak Velocity 215.0 cm/s LVOT Peak Velocity 94.0 cm/s AV Area Cont Eq vti 1.5 cm squared AV Area Cont Eq pk 1.4 cm squared MV Peak Velocity 119.0 cm/s MV Area PHT 10.7 cm squared Mitral E to A Ratio 0.6 TR Peak Velocity 440.0 cm/s TR Peak Gradient 77.4 mmHg TR Mean Velocity 357.0 cm/s TR Mean Gradient 54.5 mmHg TR Velocity Time Integral 94.1 cm PV Peak Velocity 106.2 cm/s RV Ejection Time 0.3 s FINDINGS Left Ventricle Left ventricle is normal in size. LV systolic function is normal with EF of 55-60%. No regional wall motion abnormalities are seen. Grade 1 diastolic dysfunction Right Ventricle Normal in size and function Right Atrium Normal in size Left Atrium Normal in size Mitral Valve Structurally normal mitral valve.Mild mitral regurgitation Aortic Valve Aortic valve is thickened. Mild aortic stenosis with aortic valve area 1.51 cm squared and mean gradient of 10 mmHg Tricuspid Valve Insufficient TR jet to calculate RVSP Pulmonic Valve Trace pulmonic regurgitation Pericardium Normal Aorta Normal in size IVC Appears to be normal CONCLUSIONS LV systolic function is normal with EF of 55-60% Grade 1 diastolic dysfunction Mild mitral regurgitation Mild aortic stenosis Trace pulmonic regurgitation No comparison studies are available. Giovanny Carrillo MD (Electronically Signed) Final Date: 10 October 2024 13:28 S
== END 2024-09-29 07:28 | disposition home or self-care (01) ==
LOC: RAD 07:28
PROVIDERS: PCP Family Medicine; Visit Provider Electrodiagnostic Medicine
DX: R01.1 Cardiac murmur, unspecified (principal); R93.1 Abnormal findings on diagnostic imaging of heart and coronary circulation; I34.0 Nonrheumatic mitral (valve) insufficiency; I35.8 Other nonrheumatic aortic valve disorders; I35.0 Nonrheumatic aortic (valve) stenosis
CPT/HCPCS: 93306